=== PATIENT | female | born 1995 | race Asian ===

== ENCOUNTER 2018-02-05 13:55 | Emergency (ER) | payer MEDICAID ==
[~2018-02-05] VITALS: Ht 160 cm; Wt 49.4 kg
[2018-02-05 13:55] VITALS: BP_SYST 102
[2018-02-05] MEDS ORDERED: cefTRIAXone 250 MG in LIDOCAINE 1%, 20 ML MDV 0.9 ML IM ONE (15:00)
[2018-02-05] MEDS ORDERED: AZITHROMYCIN 250 MG TABLET PO ONE (15:00)
[2018-02-05 15:11] LABS: BILIRUBIN,URINE NEGATIVE (NEGATIVE); BLOOD, URINE 3+ (NEGATIVE); CLARITY/URINE CLOUDY (CLEAR); COLOR,URINE YELLOW (YELLOW); GLUCOSE,URINE NEGATIVE (NEGATIVE); KETONES,URINE NEGATIVE (NEGATIVE); LEUKOCYTE ESTERASE ,URINE 2+ (NEGATIVE); NITRITE, URINE NEGATIVE (NEGATIVE); PH,URINE 6.5 (5.0-8.0); PROTEIN URINE 2+ (NEGATIVE); UROBILINOGEN,URINE 0.2 (0.2-1.0)
[2018-02-05 15:28] LABS: BACTERIA,URINE MODERATE /HPF (None Seen); RBC,URINE >100 /HPF (0-3); WBC,URINE 20-50 /HPF (0-3)
[2018-02-05 15:29] LABS: MUCUS,URINE 1+ /LPF (None Seen)
[2018-02-05] MEDS ORDERED: PHENAZOPYRIDINE HCL 100 MG TABLET PO ONE (15:45)
[2018-02-05] MEDS ORDERED: FLUCONAZOLE 200 MG TABLET (DIFLUCAN) PO ONE (15:45)
[2018-02-05 16:20] VITALS: BP_SYST 97
[2018-02-07 19:11] LABS: CHLAMYDIA TRACHOMATIS NAA Negative (Negative); NEISSERIA GONORRHOEAE NAA Negative (Negative)
== END 2018-02-05 16:20 | disposition home or self-care (01) ==
LOC: SED 13:55
DX: N76.0 Acute vaginitis (principal); N39.0 Urinary tract infection, site not specified; Z11.3 Encounter for screening for infections with a predominantly sexual mode of transmission
CPT/HCPCS: 81000; 81025; 87086; 87210; 87491; 87591; 96372; 99284; J0696; J2001; Q0144